=== PATIENT | male | born 1985 | race Caucasian/White ===

== ENCOUNTER 2017-09-01 02:07 | Observation (INO) | payer OTHER ==
[~2017-09-01] VITALS: Ht 175.3 cm; Wt 132.0 kg
[~2017-09-01 02:07] MED LIST: FLOMAX0.4 MG PO; HYDROCODON-ACE1 EAC7 PO; NORCO 5-325 TA1 EACH PO; TORADOL 10 MG T10 MG PO; ZOFRAN ODT4 MG PO; ZOFRAN4 MG PO
[2017-09-01 02:22] VITALS: BP 165/107
[2017-09-01] MEDS ORDERED: PERCOCET PO (02:24)
[2017-09-01 04:58] LABS: ABSOLUTE EOSINOPHILS 0.1 thou/uL (0.0-0.7); ABSOLUTE LYMPHOCYTES 1.7 thou/uL (0.8-5.3); ABSOLUTE MONOCYTES 0.8 thou/uL (0.0-1.2); ABSOLUTE NEUTROPHILS 7.2 thou/uL (1.6-8.1); BASOPHILS 0.3 %; EOSINOPHILS 0.8 %; HEMATOCRIT 40.5 % (42.0-52.0); HEMOGLOBIN 13.5 gm/dL (14.0-18.0); LYMPHOCYTES 17.5 %; MCH 29.6 pg (26.0-34.0); MCHC 33.4 g/dL (28.0-37.0); MCV 88.6 fL (80.0-100.0); MONOCYTES 8.1 %; MPV 8.5 fl. (7.2-11.1); NUCLEATED RBCS 0 /100WBC; PLATELET COUNT* 200 thou/uL (150-400); POLYS 73.3 %; RBC 4.57 mil/uL (4.50-6.00); RDW-CV 12.8 % (10.5-14.5); WBC 9.8 thou/uL (4.0-11.0)
[2017-09-01 05:18] LABS: CALCIUM 8.6 mg/dL (8.5-10.1); CREATININE 1.1 mg/dL (0.6-1.3); POTASSIUM 3.6 mmol/L (3.5-5.1)
[2017-09-01 05:33] VITALS: BP 135/81
[2017-09-01 05:50] VITALS: BP 138/86
--- NOTE | 2017-09-01 07:25 | NUR ---
CHANGE OF SHIFT RPORT GIVEN ASSUMED PATIENT CARE PATIENT SEEN AT BEDSIDE NO REQUESTS
--- NOTE | 2017-09-01 07:32 | NUR ---
PT WAS ADMITTED TO ROOM 206 DURING THIS SHIFT; VSS, [id number], NO PAIN AT TIME OF ARRIVAL TO THE UNIT. HE IS ABLE TO COMMUNICATE HIS NEEDS TO STAFF EFFECTIVELY. HE HAS DENIED THE NEED FOR PAIN MEDICATION UP TO THIS TIME. UROLOGY CONSULTED; ALL OUTPUT TO BE STRAINED FOR STONES.
[2017-09-01 08:00] VITALS: BP 130/83
[2017-09-01 09:25] LABS: URINE BILIRUBIN NEGATIVE (Negative); URINE BLOOD 1+ (Negative); URINE CLARITY CLEAR; URINE COLOR YELLOW; URINE GLUCOSE-RANDOM NEGATIVE (Negative); URINE KETONES NEGATIVE (Negative); URINE LEUKOCYTES-REFLEX NEGATIVE (Negative); URINE NITRITE-REFLEX NEGATIVE (Negative); URINE PROTEIN NEGATIVE (Negative); URINE UROBILINOGEN 0.2 E.U./dl (0.2-1.0)
[2017-09-01 10:07] LABS: CASTS None Seen /LPF (None Seen); SQUAMOUS NONE SEEN /LPF (0-3); URINE WBC-REFLEX 0-5 Rare /HPF (0-5)
[2017-09-01 10:08] LABS: BACTERIA-REFLEX None Seen /HPF (None Seen); CRYSTALS None Seen /LPF (None Seen); URINE RBC 3-10 Few /HPF (0-2)
--- NOTE | 2017-09-01 10:58 | NUR ---
CM SPOKE TO THE PATIENT TO DISCUSS HOME SITUATION, DISCHARGE PLANNING, AND TO INFOM OF THE ROLE OF CM. PATIENT ALERT, ORIENTED, AND INDEPENDENT WITH ADL'S. PATIENT WORKS AND DRIVES. PATIENT RESIDES AT HOME WITH . PATIENT USES 0 DME. PATIENT PLANS TO RETURN HOME AT D/C AND DOES NOT BELIEVE THAT HE WILL NEED ANYTHING. CM WILL REMAIN AVAILABLE TO ASSIST AND FOLLOW NEEDED.
[2017-09-01 13:34] VITALS: BP 138/86
[2017-09-01] MEDS ORDERED: FLOMAX0.4 MG PO (13:42)
[2017-09-01] MEDS ORDERED: ONDANSETRON HCL4 M2 PO (15:00)
--- NOTE | 2017-09-01 15:15 | NUR ---
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
== END 2017-09-01 15:15 | disposition home or self-care (01) ==
LOC: M.ERS 02:07 → M.TBA-ER 04:41 → M.2W 05:27
PROVIDERS: Emergency Medicine; ADMIT Internal Medicine
DX: N13.2 Hydronephrosis with renal and ureteral calculous obstruction (principal); N13.30 Unspecified hydronephrosis; R10.32 Left lower quadrant pain; E66.9 Obesity, unspecified